=== PATIENT | female | born 1985 | race Caucasian/White ===

== ENCOUNTER → 2024-05-04 | Outpatient (CLI) | payer OTHER ==
[2024-05-04 15:20] LABS: BASO % 0.2 % (0.0-1.0); EOS # 0.1 10^3/uL (0.0-0.5); EOS % 0.6 % (0.0-3.0); HEMATOCRIT 41.6 % (36.0-47.0); HEMOGLOBIN 14.1 g/dl (12.0-15.5); LYMPH % 16.6 % (24.0-44.0); MEAN CORPUSCULAR HEMOGLOBIN 29.8 pg (27.0-33.0); MEAN CORPUSCULAR HGB CONC 33.9 g/dl (32.0-36.5); MEAN CORPUSCULAR VOLUME 87.9 fl (80.0-96.0); MONO # 0.8 10^3/uL (0.0-0.8); MONO % 4.5 % (2.0-8.0); NEUTROPHILS # 14.2 10^3/uL (1.5-8.5); NEUTROPHILS % 77.5 % (36.0-66.0); PLATELET COUNT, AUTOMATED 222 10^3/uL (150-450); RED BLOOD COUNT 4.73 10^6/uL (4.00-5.40); WHITE BLOOD COUNT 18.3 10^3/uL (4.0-10.0)
[2024-05-04 15:27] LABS: ERYTHROCYTE SEDIMENTATION RATE 34 mm/hr (0-20)
[2024-05-04 15:46] LABS: LDH LACTATE DEHYDROGENASE 160 U/L (120-246)
[2024-05-04 15:48] LABS: ALBUMIN 3.7 G/DL (3.2-5.2); BLOOD UREA NITROGEN 15 MG/DL (9-23); CALCIUM LEVEL 9.2 MG/DL (8.5-10.1); CARBON DIOXIDE LEVEL 25 MMOL/L (20-31); CHLORIDE LEVEL 108 MMOL/L (98-107); CREATININE FOR GFR 0.67 MG/DL (0.55-1.30); GLOMERULAR FILTRATION RATE > 60.0 (>60); GLUCOSE, FASTING 154 MG/DL (60-100); IMMUNOGLOBULIN A 207.2 MG/DL (40-350); IMMUNOGLOBULIN G 877 MG/DL (650-1600); PHOSPHORUS LEVEL 3.9 MG/DL (2.5-4.9); POTASSIUM SERUM 3.6 MMOL/L (3.5-5.1); SODIUM LEVEL 139 MMOL/L (136-145)
[2024-05-04 15:56] LABS: HEPATITIS B SURFACE ANTIBODY NEGATIVE (POSITIVE)
[2024-05-04 16:08] LABS: HEPATITIS B SURFACE ANTIGEN NEGATIVE (NEGATIVE)
[2024-05-04 16:21] LABS: HIV 1&2 SCREEN NEGATIVE (NEGATIVE)
[2024-05-04 16:28] LABS: HEPATITIS C VIRUS ABY INDEX < 0.02 INDEX (<0.8)
== END ==
LOC: M PLALAB 14:01
PROVIDERS: ATTEND Internal Medicine Infectious Disease
DX: K11.8 Other diseases of salivary glands (principal); Z86.69 Personal history of other diseases of the nervous system and sense organs

== ENCOUNTER → 2024-05-25 | Outpatient (CLI) | payer OTHER ==
[2024-05-25 12:48] LABS: HEMATOCRIT 41.8 % (36.0-47.0); MEAN CORPUSCULAR HEMOGLOBIN 30.1 pg (27.0-33.0); MEAN CORPUSCULAR HGB CONC 33.5 g/dl (32.0-36.5); MEAN CORPUSCULAR VOLUME 89.9 fl (80.0-96.0); PLATELET COUNT, AUTOMATED 196 10^3/uL (150-450); RED BLOOD COUNT 4.65 10^6/uL (4.00-5.40); WHITE BLOOD COUNT 10.7 10^3/uL (4.0-10.0)
[2024-05-25 13:23] LABS: ERYTHROCYTE SEDIMENTATION RATE 36 mm/hr (0-20)
== END ==
LOC: M PLALAB 11:19
PROVIDERS: ATTEND Internal Medicine Infectious Disease
DX: K11.8 Other diseases of salivary glands (principal)

== ENCOUNTER → 2024-07-13 | Outpatient (CLI) | payer OTHER ==
[~2024-07-13] MED LIST: ISOVUE-370 76% 100ML VIAL As Ordered ONE
== END ==
LOC: M RAD 15:20
PROVIDERS: ATTEND Otolaryngology
DX: D37.030 Neoplasm of uncertain behavior of the parotid salivary glands (principal)
CPT/HCPCS: 70491; Q9967

== ENCOUNTER → 2024-07-27 | Outpatient (CLI) | payer OTHER ==
[~2024-07-27] MED LIST changes: -ISOVUE-370 76% 100ML VIAL As Ordered ONE; +LIDOCAINE 1% MDV 20ML VIAL As Ordered ONE
[2024-07-27 09:20] VITALS: BP 132/68; TEMP 98.7; O2SAT 98
== END ==
LOC: M IRPRO 09:08
PROVIDERS: ATTEND Otolaryngology
DX: D11.9 Benign neoplasm of major salivary gland, unspecified (principal)

== ENCOUNTER 2024-11-21 09:55 | Day surgery (SDC) | payer OTHER ==
[~2024-11-21] VITALS: Ht 165.1 cm; Wt 117.8 kg
[~2024-11-21 09:55] MED LIST changes: -LIDOCAINE 1% MDV 20ML VIAL As Ordered ONE; +LIDOCAINE 2% 100MG/5ML SDV (FOR ANES.) As Ordered ONE; +LOSA25TA13 PO; +MIDAZOLAM INJ 2MG/2ML VIAL As Ordered ONE; +ROCURONIUM BROMIDE 50MG/5ML VIAL As Ordered ONE; +THERTAB52 PO; +fentaNYL 250 MCG/5 ML INJECTION As Ordered ONE; +propofoL 200 MG/20 ML VIAL As Ordered ONE
[2024-11-21] MEDS ORDERED: LR 1,000 ML IV SCH (10:15)
[2024-11-21] MEDS ORDERED: LACRILUBE (AKWA TEARS) OPHTH OINT 3.5GM As Ordered ONE (14:11)
[2024-11-21] MEDS ORDERED: SUCCINYLCHOLINE 100MG/5ML SYRINGE As Ordered ONE (14:29)
[2024-11-21] MEDS ORDERED: KETOROLAC 60MG 2ML VIAL As Ordered ONE (14:31)
[2024-11-21] MEDS ORDERED: METOCLOPRAMIDE INJ 10MG/2ML VIAL As Ordered ONE (14:31)
[2024-11-21] MEDS ORDERED: ACETAMINOPHEN 1000MG/100ML IV BAG As Ordered ONE (14:31)
[2024-11-21] MEDS ORDERED: ONDANSETRON 4MG 2ML VIAL As Ordered ONE (14:32)
[2024-11-21] MEDS ORDERED: DESFLURANE 240 ML INHALANT As Ordered ONE (15:00)
[2024-11-21] MEDS: LIDOCAINE W/EPINEPHRINE 1% 20ML VIAL As Ordered ONE (16:17)
[2024-11-21] MEDS: BACITRACIN OINTMENT 30GM TUBE As Ordered ONE (16:17)
[2024-11-21] MEDS ORDERED: HYDROMORPHONE HCL 0.5 MG/ 0.5 ML SYRINGE IV PRN (16:55)
[2024-11-21] MEDS: LR 1,000 ML IV SCH (16:55)
[2024-11-21] MEDS ORDERED: fentaNYL 100 MCG/2 ML INJECTION IV PRN (16:55)
[2024-11-21] MEDS ORDERED: oxyCODONE 5MG TAB PO PRN (16:55)
[2024-11-21] MEDS ORDERED: LABETALOL 100MG/20ML VIAL As Ordered ONE (17:13)
[2024-11-21] MEDS: LABETALOL 100MG/20ML VIAL IV PRN (17:15)
[2024-11-21] MEDS: ONDANSETRON 4MG 2ML VIAL IV PRN (17:27)
[2024-11-21 19:05] VITALS: BP 164/78; TEMP 97; O2SAT 95
== END 2024-11-21 19:10 | disposition home or self-care (01) ==
LOC: M SDC 09:55
PROVIDERS: ATTEND Otolaryngology
DX: D11.9 Benign neoplasm of major salivary gland, unspecified (principal); Z68.41 Body mass index [BMI] 40.0-44.9, adult; Z79.899 Other long term (current) drug therapy; F17.200 Nicotine dependence, unspecified, uncomplicated
CPT/HCPCS: 42410; 81025; 88307; J0131; J0330; J1100; J1885; J1920; J2250; J2405; J2765; J3010